=== PATIENT | female | born 1980 | race Caucasian/White ===

== ENCOUNTER 2016-04-27 08:17 | Inpatient (IN) | payer OTHER ==
[~2016-04-27] VITALS: Ht 162.6 cm; Wt 66.7 kg
[~2016-04-27 08:17] MED LIST: PREN1TAB73 PO
[2016-04-27] MEDS ORDERED: Lactated Ringer's 1,000 ML IV SCH ×2 (08:47→09:22)
[2016-04-27] MEDS ORDERED: Lactated Ringer's 500 ML IV ONE (08:47)
[2016-04-27] MEDS ORDERED: Atropine 1 mg/10 mL (Code) Syringe IVPUSH PRN (08:50)
[2016-04-27] MEDS ORDERED: fentaNYL 2 mCg/mL-Bupiv 0.125% 100 ML EPIDURAL SCH (08:50)
[2016-04-27] MEDS ORDERED: Ondansetron 2 mg/mL 2 mL Inj IVPUSH PRN (08:50)
[2016-04-27] MEDS ORDERED: EPHEDrine Sulfate 50 mg/mL Inj IVPUSH PRN (08:50)
[2016-04-27] MEDS ORDERED: Lactated Ringer's 1,000 ML IV PRN (08:52)
[2016-04-27] MEDS ORDERED: Penicillin G K Inj 5,000,000 UNITS in Dextrose 5% Minibag Plus 100 ML IV ONE (08:55)
[2016-04-27] MEDS ORDERED: Sodium Chloride LOK Flush 10 mL Syringe IVFLUSH PRN (08:55)
[2016-04-27] MEDS ORDERED: Methylergonovine 0.2 mg/mL Inj IM PRN ×2 (08:55→09:25)
[2016-04-27] MEDS ORDERED: Oxytocin 30 Units/500 mL LR 30 UNITS in IV Premix 1 EACH IV PRN ×2 (08:55→09:25)
[2016-04-27] MEDS ORDERED: Carboprost 250 mCg/mL Inj IM PRN ×2 (08:55→09:25)
[2016-04-27] MEDS ORDERED: Hemorrhage Kit, Post Partum XX ONE ×2 (08:55→09:25)
[2016-04-27] MEDS ORDERED: Oxytocin 30 Units/500 mL LR Premix IV ONE (08:59)
[2016-04-27 09:00] LABS: Mean Corpuscular Hemoglobin 26.6 pg (27.0-35.0); Mean Corpuscular Volume 81.4 fL (81-100)
[2016-04-27] MEDS ORDERED: LANOlin HPA 7 Gm Ointment TOPICAL PRN (09:25)
[2016-04-27] MEDS ORDERED: Oxytocin 10 Unit/mL Inj IM PRN (09:25)
[2016-04-27] MEDS ORDERED: HYDROcodone-APAP 5-325 mg Tablet PO PRN (09:25)
[2016-04-27] MEDS ORDERED: Benzocaine (Dermoplast) 20% 60 Gm Spray TOPICAL PRN (09:25)
[2016-04-27] MEDS ORDERED: Witch Hazel-Glycerin Pads TOPICAL PRN (09:25)
--- NOTE | 2016-04-27 15:02 | PCM.HPOB ---
Subjective Date of Service: Apr 27, 2016 Referring Provider: Admitting Physician: Harjinder Santos MD Primary Care Physician: Molina Rojas MD Attending Physician: Harjinder Santos MD History of Present History of Present Illness 35-year-old at 38 weeks 4 days gestation per 1st trimester US presenting to the center with SROM prior to arrival followed by spontaneous vaginal delivery without complications shortly after admission. She is a GBS carrier and received antibiotics at time of delivery. There was evidence of pyelectasis on ultrasound (02/19/16) with resolution on repeat ultrasound, . OB History: (3), Term (3), Living (3) Obstetrical Complications: Other ( pyelectasis on ultrasound (02/19/16)- resolved) Past Medical History Obstetrical History: - October 2007 - May 2009 Gynecologic History: Abnormal pap smear in 2003- Normal follow up Hx Tobacco Use: No Hx Alcohol Use: No Hx Substance Use: No Past Family History Family History Maternal grandmother- Breast cancer Mother- Multiple sclerosis Living Arrangement: with Family Genetic Screening/Counseling Genetic Screening/Counseling: Negative Review of Systems ROS All other systems reviewed and negative, except as noted. Constitutional: Y: Pain (well controlled. ) Genitourinary: Reports: Other Medications Home medications Ferrous sulfate 325mg PO daily vitamin 27mg-0.8mg PO daily Vitamin C 500mg PO daily Allergy Coded Allergies: No Known Allergies (Verified , 11/19/07) Exam Vital Signs All vital signs available at the time of this entry have been reviewed. Constitutional: Well-developed, Well-nourished HEENT: Atraumatic, PERRLA, Mucous Membr Moist/[place] Lungs: Clear to Auscultation, Normal Air Movement Heart: Regular Rate/Rhythm, Normal S1, Normal S2, No Murmurs/Rubs/Gallops Abdomen: Gravid, Normal bowel sounds, Soft Extremities: Pulses Palpable x4, Warm, No Edema Neurological/Psychiatric: Alert, Oriented X3, Cooperative Neuro: Grossly Neurologically Intact Additional Information Current Medications Benzocaine 1 spray PRN PRN TOPICAL Last administered on 04/27/16 10:10; Admin Dose 1 SPRAY; Start 04/27/16 at 09:25 Ibuprofen 800 mg Q6H PRN PO Last administered on 04/27/16 10:11 Lactated Ringer's 1,000 ml @ 125 mls/hr Q8H IV Last administered on 04/27/16 08 :47 Penicillin G Potassium/ Dextrose/Water 100 ml @ 240 mls/hr ONCE IV Last administered on 04/27/16 09:05 Labs/Diagnostics Labs Laboratory Tests Test 04/27/16 08:53 White Blood Count 16.0th/mm3 (3.8-10.1) Red Blood Count 4.47mil/mm3 (3.90-5.20) Hemoglobin 11.9g/dL (12.0-15.6) Hematocrit 36.4% (35.0-46.0) Mean Corpuscular Volume 81.4fL (81-100) Mean Corpuscular Hemoglobin 26.6pg (27.0-35.0) Mean Corpuscular Hemoglobin Concent 32.7% (32.0-37.0) Red Cell Distribution Width 13.6% (12.3-15.4) Platelet Count 332bil/L (150-400) Ultra Sound 03/24/16- OB Ultrasound Impression: Single living intrauterine gestation, at estimated gestational age of 34w3d based on initial OB ultrasound. Normalization of the renal pelvises. Approved by Tyron Ivey MD on 2016 at 15:46. 02/19/16- OB Ultrasound Impression: Normal interval growth. Minimal pyelectasis of the left kidney with the renal pelvis measuring up to 7.6mm. Follow recommended (results as above). Approved by Jyotsna Emerson MD on 02/19/2016 at 15: 44. . Lab/Diagnostic Information Chlamydia- negative Gonorrhea- negative RPR- non reactive HBsAg- negative HIV screen- non reactive Maternal Blood Type: O Hx Rho(D) Immune Globulin: Yes Antibody Screen: Negative Group B Strep Results: Positive Rubella: Immune OB Intrapartum Assessment/Plan Assessment 35-year-old at 38 weeks 4 days gestation per 1st trimester US presenting to the center with SROM prior to arrival followed by spontaneous vaginal delivery without complications. She is a GBS carrier and received antibiotics at time of delivery. Pain Evaluation: Adequate Pain Control Intrapartum plan Post plan: Continue routine post care (Pt is a GBS carrier and due to the urgent nature of delivery and timing of antibiotics will require additional inpatient monitoring.) Marissa Mayo DO Apr 27, 2016 13:46
[2016-04-27] MEDS ORDERED: Penicillin G K Inj 3,000,000 UNITS in IV Premix 1 EACH IV SCH (16:30)
--- NOTE | 2016-04-27 20:34 | OP ---
[address] [address] OPERATIVE REPORT PATIENT: SHAYLA ANGEL : 1980 MR#: [id number] ADMIT: 04/27/2016 JOB ID: [id number] DATE OF SURGERY: 04/27/2016 SURGEON: Harjinder Santos MD PREOPERATIVE DIAGNOSIS(ES): POSTOPERATIVE DIAGNOSIS(ES): ADMITTING DIAGNOSIS: A 35-year-old, 3, para 2, at 38 weeks and 3 days in active labor. POST DELIVERY DIAGNOSIS: A 35-year-old, 3, para 3, status post spontaneous vaginal delivery at term. Precipitous labor. The patient is a 35-year-old, 3, para 3 now who came to Labor and Delivery at 9 o'clock in the morning complaining of contractions that started at 5 a.m. She had spontaneous rupture of membranes at around 9 a.m. She was emilie every 3 minutes. On exam, the patient was 7 cm dilated, station -1, 80% effaced. She was admitted for delivery. The patient is group B strep positive. She received one dose of penicillin prior to delivery. She quickly progressed to full dilation at 9:02 a.m. and underwent spontaneous vaginal delivery at 9:14 a.m. Delivered male with Apgars 8 at one minute and 9 at five minutes. The patient has not had any lacerations. Placenta was delivered three minutes later and was found to be intact with three-vessel cord. Estimated blood loss was 250 mL. There was cord around the neck x1 and there was a true knot in the cord upon delivery of the . Delayed cord clamping was done. It was uncomplicated precipitous labor.
[2016-04-28 06:38] LABS: Mean Corpuscular Hemoglobin 25.9 pg (27.0-35.0); Mean Corpuscular Volume 82.5 fL (81-100)
--- NOTE | 2016-04-28 07:16 | PCM.PNOBPP ---
Subjective Date of Service Apr 28, 2016 Post : Spontaneous Vaginal Delivery Visit History 35-year-old ->3 on day 1 from [facility] who presented at 38 weeks 4 days gestation in active labor. She had SROM at 9:00am and spontaneous vaginal delivery at 9:14am without complications. She is a GBS carrier and received one dose of penicillin prior to delivery. There was evidence of pyelectasis on ultrasound (02/19/16) with resolution on repeat ultrasound, 04/01/16. Delivered male with Apgars 8 at one minute and 9 at five minutes. . Subjective Patient is doing well and reports fatigue but otherwise is without complaint. She is without issue and is considering an IUD for control. Denies fever, abdominal pain, nausea, vomiting, chest pain or shortness of breath. Lochia: Normal Pain Management: PO pain meds, Good Pain Control Gastrointestinal: Good Appetite, No N/V, Normal Bowel Movement Postop Activity: Ambulating Independently Labs Chlamydia- negative Gonorrhea- negative RPR- non reactive HBsAg- negative HIV screen- non reactive Group B Strep Results: Positive Rubella: Immune Blood Type: O RH Type: Positive Labs Laboratory Tests 04/28/16 06:10: Exam Vital Signs Vital Signs 04/27/15 23:30 Temp 36.6C, HR 79, RR 18, BP 101/56 Vital Signs: VS reviewed, stable Exam Abdomen: Abdomen soft, Abdomen appropriately tender Perineum: Intact : Voiding without difficulty Extremities: Normal pulses, No edema Lungs: Clear to Auscultation Heart: Regular Rate/Rhythm, No Murmurs/Rubs/Gallops General: Alert, Oriented X3 OB Post Assessment/Plan Assessment 35-year-old -> 3 who presented at 38 weeks 4 days gestation post- day 1 from [facility] who is recovering appropriately. Pain Management: PO NSAIDs, prn. Pain Evaluation: Adequate Pain Control Post plan: Continue routine post care (Pt is a GBS carrier and due to the urgent nature of delivery and timing of antibiotics will require additional inpatient monitoring.) Plan: - going well, continue to encourage -Anticipated discharge 04/29/16 -OB post- F/U in 6 weeks -Pain control, PO NSAIDS prn -Contraception plan: IUD Attending Statement Doing well today day #1 s/p precipitous spontaneous vaginal delivery. Pain is well controlled, ambulating and voiding without difficulty. Labs, vitals reviewed. Stable,mild anemia noted. without issue. Lochia is minimal. Will discharge today, likely to boarder status, baby is being observed due to precipitous with inadequately treated GBS. She is O+/ RI/. Marissa Mayo DO Apr 28, 2016 06:37 Padmini Flowers MD Apr 28, 2016 11:37
--- NOTE | 2016-04-28 09:20 | PCM.DIOB ---
Obstetrical Disch Instruction Date of Service: Apr 28, 2016 Dates of Hospitalization Date of Hospital Admission Apr 27, 2016 at 08:19 Providers Admitting Physician: Harjinder Santos MD Primary Care Physician: Molina Rojas MD Attending Physician: Harjinder Santos MD Discharge Diagnosis Discharge Diagnosis Anemia Problems: Diet Discharge Diet: No restrictions Activity Discharge Activity-General: Pelvic Rest for 6 weeks Additional Instructions Discharge Instructions Continue your vitamin. Please take the iron and vitamin C together for your anemia. Ibuprofen 800mg, take 1 tab every 8 hours by mouth as needed for pain. Be sure to follow up in 6 weeks at [facility]. Pelvic rest for 6 weeks (nothing per vagina including intercourse, tampons) If you have a fever greater than 100.4, please call [facility]. There is always someone precision devices inspector/tester to talk to. If you have an increase in bleeding, call [facility]. If you have a lot of bleeding suddenly, especially if you have symptoms of dizziness & weakness with it, get emergency help. When you see [facility] in six weeks, you will be informed of the results of all the labs. If you start experiencing extreme depression, especially if you feel that you are a danger to yourself or your family, seek emergency help. You have been through a lot -- BE SURE TO TAKE CARE OF YOURSELF. Follow Up Plan Follow-up Provider (F9): [facility] Follow-up appointment: Weeks (6) Call your provider for: Fever or Chills, Shortness of breath, Heavy vaginal bleeding, Heavy bleeding, Red painful breasts Marissa Mayo DO Apr 28, 2016 07:52
[2016-04-28] MEDS ORDERED: IBUP800T28 PO (09:26)
[2016-04-28 09:37] VITALS: BP 104/58; PULSE 79; RESP 20
[2016-04-28] MEDS ORDERED: ASCO-294 PO (09:40)
[2016-04-28] MEDS ORDERED: FERR-83 PO (09:40)
--- NOTE | 2016-04-28 09:45 | PCM.DC.OB ---
Obstetrical Discharge Summary Date of Service Apr 28, 2016 Date of hospital admission Apr 27, 2016 at 08:19 Date of Discharge: Apr 28, 2016 Providers Admitting Physician: Harjinder Santos MD Primary Care Physician: Molina Rojas MD Attending Physician: Harjinder Santos MD Diagnosis at Time of Discharge Anemia Problems: Brief History and Physical: 35-year-old who presented to the [facility] in active labor at 38 weeks 3 days gestation per 1st trimester US. She is a GBS carrier and received antibiotics at time of delivery. There was evidence of pyelectasis on ultrasound (02/19/16) with resolution on repeat ultrasound, 04/01/16. Pre-pilar labs as follows: Group B Strep positive, blood type O, Rho (D) Immune globulin positive, immunity to Rubella/Varicella, Chlamydia/Gonorrhea/HBsAg negative, HIV and RPR non-reactive. . Hospital Course: 35-year-old -->3 who presented in active labor and discharged on post- day 1 after . She had SROM at around 9am and quickly progressed to full dilation at 9:02am with at 09:14. Delivered male with Apgars 8 at one minute and 9 at five minutes. She had no lacerations. The placenta was delivered three minutes later and was found to be intact with three -vessel cord. She is GBS positive and received a dose of penicillin prior to delivery. . Ascorbate Calcium (Vitamin C) 500 Mg Tablet 500 MG PO DAILY Prescribed by: KAYE BURT DO Ferrous Sulfate (Ferrous Sulfate) 325 Mg Tablet 325 MG PO DAILY Prescribed by: KAYE BURT DO Ibuprofen (Ibuprofen) 800 Mg Tablet 800 MG PO Q8H PRN PRN For Pain Prescribed by: KAYE BURT DO Vit/Fe Fumarate/Fa-Expunged Drug, Do (-Expunged Drug, Do Not Renew!) 1 Tab Tablet 1 TAB PO (Reported) Discharge Medications: Ferrous sulfate 325mg po daily Vitamin C 500mg po daily Ibuprofen 800mg q8h po prn . Disposition Patient discharged on post- day 1 after . . Follow-up plan Follow up at [facility] in 6 weeks. . Discharge Diet: No restrictions Discharge Activity-General: Pelvic Rest for 6 weeks Patient instructions Continue your vitamin. Please take the iron and vitamin C together for your anemia. Ibuprofen 800mg, take 1 tab every 8 hours by mouth as needed for pain. Be sure to follow up in 6 weeks at [facility]. Pelvic rest for 6 weeks (nothing per vagina including intercourse, tampons) If you have a fever greater than 100.4, please call [facility]. There is always someone consumer banker to talk to. If you have an increase in bleeding, call [facility]. If you have a lot of bleeding suddenly, especially if you have symptoms of dizziness & weakness with it, get emergency help. When you see [facility] in six weeks, you will be informed of the results of all the labs. If you start experiencing extreme depression, especially if you feel that you are a danger to yourself or your family, seek emergency help. You have been through a lot -- BE SURE TO TAKE CARE OF YOURSELF. Attending Statement: The patient was seen and examined together with Dr. Burt and I agree with the history, exam and plan as outlined in the note above. copies to: Molina Rojas MD, Courtney M DO Apr 28, 2016 09:21 Padmini Flowers MD Apr 28, 2016 11:45
== END 2016-04-28 14:32 | disposition home or self-care (01) | DRG 775 ==
LOC: FBCO 08:17 → FBC 08:19
PROVIDERS: ADMIT Legal Medicine; ATTEND Legal Medicine
PROC: 10E0XZZ Delivery of Products of Conception, External Approach (ICD-10-PCS; principal; 2016-04-27)
DX: O62.3 Precipitate labor (principal); Z3A.38 38 weeks gestation of pregnancy; Z37.0 Single live birth; O99.824 Streptococcus B carrier state complicating childbirth; O69.81X0 Labor and delivery complicated by cord around neck, without compression, not applicable or unspecified; O99.02 Anemia complicating childbirth; D64.9 Anemia, unspecified